=== PATIENT | male | born 1985 | race Caucasian/White ===

== ENCOUNTER 2021-01-13 11:06 | Inpatient (IN) | payer OTHER ==
[~2021-01-13] VITALS: Ht 175.3 cm; Wt 147.4 kg
[2021-01-13 11:36] LABS: HEMOGLOBIN 16.9 gm/dl (14.0-17.5); RED BLOOD COUNT 5.31 M/UL (4.20-5.50); WHITE BLOOD COUNT 6.1 K/UL (4.5-11.0)
[2021-01-13 12:29] LABS: BUN/CREATININE RATIO 19 (0-10)
[2021-01-13] MEDS ORDERED: LISINOPRIL-HCT1 EACH PO (21:07)
[2021-01-13] MEDS ORDERED: GEMFIBROZIL600 MG PO (21:07)
[2021-01-14 05:19] LABS: HEMOGLOBIN 16.9 gm/dl (14.0-17.5); RED BLOOD COUNT 5.33 M/UL (4.20-5.50); WHITE BLOOD COUNT 7.2 K/UL (4.5-11.0)
[2021-01-14 05:39] LABS: BUN/CREATININE RATIO 27 (0-10)
[2021-01-15 03:33] LABS: HEMOGLOBIN 16.6 gm/dl (14.0-17.5); RED BLOOD COUNT 5.3 M/UL (4.20-5.50); WHITE BLOOD COUNT 8.7 K/UL (4.5-11.0)
[2021-01-15 03:52] LABS: BUN/CREATININE RATIO 31 (0-10)
[2021-01-16 05:22] LABS: HEMOGLOBIN 16.4 gm/dl (14.0-17.5); RED BLOOD COUNT 5.22 M/UL (4.20-5.50); WHITE BLOOD COUNT 10.3 K/UL (4.5-11.0)
[2021-01-16 05:41] LABS: BUN/CREATININE RATIO 35 (0-10)
[2021-01-18 04:18] LABS: HEMOGLOBIN 17.7 gm/dl (14.0-17.5); RED BLOOD COUNT 5.67 M/UL (4.20-5.50)
[2021-01-18 04:21] LABS: WHITE BLOOD COUNT 15.1 K/UL (4.5-11.0)
[2021-01-18 04:47] LABS: BUN/CREATININE RATIO 37 (0-10)
[2021-01-19 04:49] LABS: HEMOGLOBIN 18.1 gm/dl (14.0-17.5); RED BLOOD COUNT 5.8 M/UL (4.20-5.50); WHITE BLOOD COUNT 21.3 K/UL (4.5-11.0)
[2021-01-19 05:54] LABS: BUN/CREATININE RATIO 45 (0-10)
[2021-01-20 02:22] LABS: HEMOGLOBIN 18.7 gm/dl (14.0-17.5); WHITE BLOOD COUNT 23.3 K/UL (4.5-11.0)
[2021-01-20 02:59] LABS: BUN/CREATININE RATIO 47 (0-10)
[2021-01-21 03:07] LABS: HEMOGLOBIN 18.9 gm/dl (14.0-17.5); RED BLOOD COUNT 6.02 M/UL (4.20-5.50); WHITE BLOOD COUNT 25.9 K/UL (4.5-11.0)
[2021-01-21 03:24] LABS: BUN/CREATININE RATIO 43 (0-10)
[2021-01-22 02:46] LABS: HEMOGLOBIN 18.3 gm/dl (14.0-17.5); RED BLOOD COUNT 5.81 M/UL (4.20-5.50); WHITE BLOOD COUNT 19.6 K/UL (4.5-11.0)
[2021-01-22 03:23] LABS: BUN/CREATININE RATIO 41 (0-10)
[2021-01-22] MEDS ORDERED: BUDESONIDE0.5 MG/2 M NEB (08:50)
[2021-01-22] MEDS ORDERED: IPRAT-ALBUT 0.5-3 ML NEB (08:50)
[2021-01-22] MEDS ORDERED: PROTONIX 40 MG40 M1 PO (08:54)
[2021-01-22] MEDS ORDERED: DECADRON4 MG PO (08:54)
[2021-01-22] MEDS ORDERED: DECADRON6 MG PO (08:54)
[2021-01-22] MEDS ORDERED: DOXYCYCLINE HY100 MG PO (08:56)
--- NOTE | 2021-01-22 09:10 | NUR ---
PT O2 OFF AT THIS TIME, O2 SAT 87, PLACED BACK ON O2 AT 6L HIGH FLOW NC
== END 2021-01-22 16:06 | disposition home or self-care (01) | DRG 871 ==
LOC: ER1 11:06 → PROG CARE 16:40 → CCU 16:40 → CDU 16:40 → CCU 20:35 → PROG CARE 01-19 19:19
PROVIDERS: Emergency Medicine; Family Medicine; Internal Medicine Pulmonary Disease; ADMIT Internal Medicine
PROC: XW033E5 Introduction of Remdesivir Anti-infective into Peripheral Vein, Percutaneous Approach, New Technology Group 5 (ICD-10-PCS; principal; 2021-01-13)
PROC: 5A09557 Assistance with Respiratory Ventilation, Greater than 96 Consecutive Hours, Continuous Positive Airway Pressure (ICD-10-PCS; principal; 2021-01-13)
PROC: XW13325 Transfusion of Convalescent Plasma (Nonautologous) into Peripheral Vein, Percutaneous Approach, New Technology Group 5 (ICD-10-PCS; principal; 2021-01-13)
PROC: XW033H5 Introduction of Tocilizumab into Peripheral Vein, Percutaneous Approach, New Technology Group 5 (ICD-10-PCS; principal; 2021-01-13)
PROC: 8E0ZXY6 Isolation (ICD-10-PCS; principal; 2021-01-13)
PROC: 3E0333Z Introduction of Anti-inflammatory into Peripheral Vein, Percutaneous Approach (ICD-10-PCS; principal; 2021-01-13)
DX: A41.89 Other specified sepsis (principal); U07.1 COVID-19; J12.82 Pneumonia due to coronavirus disease 2019; J80 Acute respiratory distress syndrome; J15.20 Pneumonia due to staphylococcus, unspecified; E87.1 Hypo-osmolality and hyponatremia; I10 Essential (primary) hypertension; D72.829 Elevated white blood cell count, unspecified; E66.01 Morbid (severe) obesity due to excess calories; R53.1 Weakness; E88.09 Other disorders of plasma-protein metabolism, not elsewhere classified; I95.9 Hypotension, unspecified; R73.9 Hyperglycemia, unspecified; E78.5 Hyperlipidemia, unspecified; Z83.3 Family history of diabetes mellitus; Z82.49 Family history of ischemic heart disease and other diseases of the circulatory system; Z79.52 Long term (current) use of systemic steroids; Z72.0 Tobacco use; Z90.89 Acquired absence of other organs; Z83.6 Family history of other diseases of the respiratory system; Z68.36 Body mass index [BMI] 36.0-36.9, adult
CPT/HCPCS: 0240U; 36415; 36600; 71045; 80053; 81001; 82550; 82553; 82728; 82803; 83036; 83605; 83615; 83735; 83880; 84100; 84484; 85025; 85027; 85362; 85379; 85384; 85610; 85730; 86140; 86900; 86901; 86927; 87040; 87070; 87081; 87205; 87880; 93005; 94640; 94660; 94664; 94760; 99285; C9113; J0360; J0696; J1100; J1205; J1650; J2060; J7030; J7050; Q9967

== ENCOUNTER → 2021-03-26 | Outpatient (CLI) | payer OTHER ==
[~2021-03-26] MED LIST: BUDESONIDE0.5 MG/2 M NEB; DECADRON4 MG PO; DECADRON6 MG PO; DOXYCYCLINE HY100 MG PO; GEMFIBROZIL600 MG PO; IPRAT-ALBUT 0.5-3 ML NEB; LISINOPRIL-HCT1 EACH PO; PROTONIX 40 MG40 M1 PO
== END ==
LOC: RAD 16:23
DX: Z09 Encounter for follow-up examination after completed treatment for conditions other than malignant neoplasm (principal); Z86.16 Personal history of COVID-19
CPT/HCPCS: 71046